=== PATIENT | female | born 1940 | race Caucasian/White ===

== ENCOUNTER → 2018-09-17 | Outpatient (CLI) | payer MEDICARE, MEDICAID ==
[~2018-09-17] MED LIST: ENAL5TAB PO; MTP25TSR PO; ROSU10TA12 PO
--- NOTE | 2018-09-17 14:42 | Diagnostic Imaging Report ---
PROCEDURE: CT abdomen and pelvis without contrast. TECHNIQUE: Multiple contiguous axial images were obtained through the abdomen and pelvis without the use of intravenous contrast. INDICATION: Abdominal aortic aneurysm. FINDINGS: The previous CT abdomen/pelvis exam of 04/04/2015 noted a 5.0 x 5.1 cm infrarenal aneurysm of the abdominal aorta. On this study, the aneurysm is again identified and now measures 5.4 x 5.4 cm. The sagittal images indicate that the aneurysm measures approximately 11.6 cm in length. There is no periaortic fluid collection to suggest an acute abnormality of the aorta. A 9 mm calcification has developed within the lumen of the aneurysm in the interval since the prior exam. This is of uncertain etiology but unlikely to be clinically significant. A good portion of the aneurysm appears to be thrombosed. Also as seen on the prior exam, there are numerous diverticula involving the sigmoid and descending colon. There is no evidence for acute diverticulitis. The appendix is not well visualized, but there are no indirect signs of acute appendicitis. The urinary bladder is grossly unremarkable. The uterus is surgically absent. The liver, spleen, pancreas, adrenals, gallbladder, kidneys, and inferior vena cava show no sign of an acute abnormality. The cysts associated with the right kidney and the nonobstructive calculi in the left kidney seen on the prior study are again evident and no different. The nonobstructive calculus in the inferior pole of the right kidney seen on the prior exam is no longer evident, however. The stomach is partially filled with fluid and consequently difficult to assess. The lung bases are clear. The bone windows are unremarkable for a fracture or for a destructive lesion. IMPRESSION: 1. The infrarenal aneurysm of the abdominal aorta seen on the prior exam has increased in size slightly. The aneurysm now measures 5.4 x 5.4 cm. 2. There is no acute abnormality of the abdomen or pelvis. 3. The nonobstructive calculus in the inferior pole of the right kidney seen on the prior exam is no longer evident. Dictated by: Dictated on workstation # [id number]
== END ==
LOC: RAD 11:57
PROVIDERS: ATTEND Radiology Vascular & Interventional Radiology
DX: I71.4 Abdominal aortic aneurysm, without rupture (principal); N20.0 Calculus of kidney
CPT/HCPCS: 74176

== ENCOUNTER → 2019-02-19 | Outpatient (CLI) | payer MEDICARE, MEDICAID ==
--- NOTE | 2019-02-19 11:47 | Diagnostic Imaging Report ---
PROCEDURE: CT abdomen and pelvis without contrast. TECHNIQUE: Multiple contiguous axial images were obtained through the abdomen and pelvis without the use of intravenous contrast. Auto Exposure Controls were utilized during the CT exam to meet ALARA standards for radiation dose reduction. INDICATION: Abdominal aortic aneurysm. COMPARISON: 09/17/2018 as well as 04/04/2015. FINDINGS: Heavy peripheral calcifications are associated with a fusiform infrarenal abdominal aortic aneurysm which commences at or just below the takeoff of the renal arteries and extends to the level of the aortic bifurcation. The aneurysm measures 5.4 cm in maximal transverse dimension, unchanged when measured at the same level from the recent exam and increased from 5.1 cm on the study from 2014. The iliac vessels are nonaneurysmal. There is no evidence for intra or extraperitoneal hemorrhage. There is no bowel obstruction. The liver, spleen, adrenals, and pancreas are unremarkable on this unenhanced exam. There are a few stones within the lumen of the partly contracted gallbladder but no bile duct dilatation. Nonobstructing left renal calcifications are stable. There is a right renal cyst at the upper pole, also stable. IMPRESSION: 1. Unruptured fusiform infrarenal peripherally calcified abdominal aortic aneurysm, stable from the most recent exam and mildly increased since 2014 in caliber. 2. No acute appearing abnormality. Cholelithiasis and right renal cysts are noted incidentally. Dictated by: Dictated on workstation # [id number]
== END ==
LOC: RAD 09:37
PROVIDERS: ATTEND Radiology Vascular & Interventional Radiology
DX: I71.4 Abdominal aortic aneurysm, without rupture (principal); I70.0 Atherosclerosis of aorta; K80.20 Calculus of gallbladder without cholecystitis without obstruction; N28.1 Cyst of kidney, acquired
CPT/HCPCS: 74176

== ENCOUNTER → 2020-02-14 | Outpatient (CLI) | payer MEDICARE, MEDICAID ==
--- NOTE | 2020-02-14 11:18 | Diagnostic Imaging Report ---
PROCEDURE: CT abdomen and pelvis without contrast. TECHNIQUE: Multiple contiguous axial images were obtained through the abdomen and pelvis without the use of intravenous contrast. Auto Exposure Controls were utilized during the CT exam to meet ALARA standards for radiation dose reduction. INDICATION: Abdominal aortic aneurysm without rupture COMPARISON: 02/19/2019, 09/17/2018, and 04/04/2015 FINDINGS: The visualized lung bases are clear. The unenhanced liver, spleen, adrenal glands, and pancreas are unremarkable. Minimal layering sludge and/or stones noted within the gallbladder without evidence of adjacent fat stranding. Hypodensities are identified associated with the right kidney, appearing similar to the prior examination. These demonstrate Hounsfield units below 10. The left kidney is unremarkable. Fusiform aneurysmal dilatation of the abdominal aorta is again identified. Aneurysm originates at the level of the renal vasculature and extends to the level of the aortic bifurcation. Maximal dimension is 5.7 x 5.7 cm, slightly increased since the prior examination. No aneurysmal dilatation of the iliac vasculature. No significant fat stranding about the abdominal aorta. The urinary bladder is unremarkable. The uterus is not visualized, likely surgically absent. No abnormal adnexal mass lesion. No bowel obstruction or pneumatosis. No significant adenopathy, free air, or free fluid within the abdomen or pelvis. Scattered osseous degenerative changes without acute osseous abnormality. IMPRESSION: Abdominal aortic aneurysm as described above measuring up to 5.7 x 5.7 cm. This has slightly increased in size since the prior exams. No evidence of rupture. Additional findings as above. Dictated by: Dictated on workstation # [id number]
== END ==
LOC: RAD 10:34
PROVIDERS: ATTEND Radiology Vascular & Interventional Radiology
DX: I71.4 Abdominal aortic aneurysm, without rupture (principal)
CPT/HCPCS: 74176

== ENCOUNTER → 2020-09-08 | Outpatient (CLI) | payer MEDICARE, MEDICAID ==
--- NOTE | 2020-09-08 10:45 | Diagnostic Imaging Report ---
EXAMINATION: CT Abdomen Pelvis without contrast. TECHNIQUE: Multiple contiguous axial images were obtained through the abdomen and pelvis without the use of intravenous contrast. All CT scans use one or more of the following dose optimizing techniques: automated exposure control, MA and/or KvP adjustment based on a patient size and exam type, or iterative reconstruction. HISTORY: Abdominal aortic aneurysm. COMPARISON: 02/14/2020 FINDINGS: Limited views of the lower thorax show pulmonary emphysema. The liver is normal without focal lesion. There is no biliary ductal dilation. Small stones are present in the gallbladder. Pancreas is normal. Spleen is normal. Adrenal glands are normal. Cysts are present in the right kidney. No suspicious renal lesions. There is no hydronephrosis. Urinary bladder is normal. Visualized bowel is normal in caliber without obstruction or inflammation. No free fluid or air. No abdominal or pelvic lymphadenopathy. There is an abdominal aortic aneurysm. It is increased in size measuring 5.9 x 6.1 cm, previously 5.6 x 5.6 cm. There is a large amount of mural thrombus and peripheral calcifications. There are no suspicious osseus lesions. IMPRESSION: 1. Increase in size of abdominal aortic aneurysm now measuring 5.9 x 6.1 cm, previously 5.6 x 5.6 cm. Dictated by: Dictated on workstation # [id number]
== END ==
LOC: RAD 09:49
PROVIDERS: ATTEND Radiology Vascular & Interventional Radiology
DX: I71.4 Abdominal aortic aneurysm, without rupture (principal)
CPT/HCPCS: 74176

== ENCOUNTER 2022-03-26 21:47 | Emergency (ER) | payer MEDICARE, MEDICAID ==
[~2022-03-26] VITALS: Ht 152.4 cm; Wt 48.0 kg
[2022-03-26] MEDS ORDERED: NS IV 500 ML 500 ML IV ONE (22:00)
[2022-03-26] MEDS ORDERED: CEFEPIME INJECTION 1,000 MG in NS (IVPB) 50 ML IV ONE (22:00)
[2022-03-26] MEDS ORDERED: VANCOMYCIN INJECTION 1,000 MG in NS (IVPB) 250 ML IV ONE (22:00)
[2022-03-26] MEDS ORDERED: RT-ALBUTEROL/IPRATROPIUM 3 ML (DUONEB) VIAL ONE (22:05)
--- NOTE | 2022-03-26 22:06 | ED Respiratory ---
General Chief Complaint: Respiratory Problems Stated Complaint: SOB Source: patient Exam Limitations: no limitations History of Present Illness Date Seen by Provider: March 26, 2022 Time Seen by Provider: 21:45 Initial Comments Patient ER by EMS from home with chief complaint of a day of increased work of breathing, wheezing and dependence on her oxygen. She says she only wears it when she feels she needs it but she is been using it at about 2-1/2 L with a 50 foot O2 extension cord today. She only takes her albuterol by nebulizer 3-4 times a week. EMS was summonsed because family saw her oxygen sats in the 50s. EMS state her hands are very dusky colored and she states she has a history of peripheral arterial disease and bilateral arms. They found her oxygen saturation to be in the mid 80s and gave her a DuoNeb which she says signific antly improved her symptoms. She has been coughing up her normal complement of white sputum. She has not had any fever or chills. No nausea vomiting chest pain. She says she is feeling much better than before. She has not been on steroids recently. Allergies and Home Medications Allergies Coded Allergies: betamethasone (Unverified Allergy, Mild, 04/04/15) diphenhydramine (Unverified Allergy, Mild, 04/04/15) ketorolac (Unverified Allergy, Mild, 04/04/15) promethazine (Unverified Allergy, Mild, 04/04/15) propylene glycol (Unverified Allergy, Mild, 04/04/15) silver sulfadiazine (Unverified Allergy, Mild, 04/04/15) Penicillins (Verified Allergy, Unknown, 04/04/15) Uncoded Allergies: IV CONTRAST (Allergy, Unknown, 04/04/15) Patient Home Medication List Home Medication List Reviewed: Yes Enalapril Maleate (Enalapril Maleate) 5 Mg Tablet, 5 MG PO DAILY, (Reported) Entered as Reported by: RA OLIVEIRA on 04/04/15 1558 Metoprolol Succinate (Toprol Xl) 25 Mg Tab, 25 MG PO DAILY, (Reported) Entered as Reported by: RA OLIVEIRA on 04/04/15 1558 Prednisone (Prednisone) 20 Mg Tab, 40 MG PO DAILY Prescribed by: NANCI YANG on 03/27/22 0148 Rosuvastatin Calcium (Crestor) 10 Mg Tablet, 1 EACH PO HS, (Reported) Entered as Reported by: RA OLIVEIRA on 04/04/15 5738 Review of Systems Review of Systems Constitutional: No chills, No diaphoresis EENTM: No ear discharge, No ear pain Respiratory: see HPI, cough; No phlegm; short of breath, wheezing Cardiovascular: No chest pain, No palpitations Gastrointestinal: No abdominal pain, No nausea, No vomiting Genitourinary: No discharge, No dysuria Musculoskeletal: back pain; No joint pain All Other Systems Reviewed Negative Unless Noted: Yes Past Ozrtvas-Xczrya-Kjpyez Hx Patient Social History Tobacco Use?: No Use of E-Cig and/or Vaping dev: No Seasonal Allergies Seasonal Allergies: No Past Medical History Hysterectomy Chronic Bronchitis Aneurysm, Hypertension Renal Failure Family Medical History No Pertinent Family Hx Physical Exam Vital Signs - First Documented Capillary Refill : Height: 5'" Weight: 124lbs. oz. 56.724017oa; BMI Method: General Appearance: moderate distress, thin, other (Chronic illness, thin) Eyes: Bilateral Eye Normal Inspection, Bilateral Eye PERRL, Bilateral Eye EOMI HEENT: PERRL/EOMI, normal ENT inspection; No pharynx normal (Mildly dry oral mucosa) Neck: full range of motion, supple, normal inspection Respiratory: respiratory distress (Oxygen saturations 96 to 97% on 3 L), decreased breath sounds, accessory muscle use; No rales; wheezing Cardiovascular: normal peripheral pulses, regular rate, rhythm Gastrointestinal: normal bowel sounds, non tender, soft Extremities: normal range of motion, non-tender, normal capillary refill Neurologic/Psychiatric: alert, normal mood/affect, oriented x 3 Skin: normal color, warm/dry Focused Exam Lactate Level 03/26/22 22:00: Lactic Acid Level 1.47 Lactic Acid Level Laboratory Tests Test 03/26/22 22:00 Lactic Acid Level 1.47 MMOL/L (0.50-2.00) Progress/Results/Core Measures Suspected Sepsis SIRS Temperature: Pulse: Respiratory Rate: Laboratory Tests 03/26/22 22:00: White Blood Count 14.5H Blood Pressure / Mean: 03/26/22 22:00: Lactic Acid Level 1.47 Laboratory Tests 03/26/22 22:00: Creatinine 2.04H, INR Comment 1.1, Platelet Count 186, Total Bilirubin 1.0 Results/Orders Lab Results Laboratory Tests Test 03/26/22 22:00 03/26/22 23:43 Range/Units White Blood Count 14.5 H 4.3-11.0 10^3/uL Red Blood Count 5.25 H 3.80-5.11 10^6/uL Hemoglobin 14.6 11.5-16.0 g/dL Hematocrit 46 35-52 % Mean Corpuscular Volume 88 80-99 fL Mean Corpuscular Hemoglobin 28 25-34 pg Mean Corpuscular Hemoglobin Concent 32 32-36 g/dL Red Cell Distribution Width 13.3 10.0-14.5 % Platelet Count 186 130-400 10^3/uL Mean Platelet Volume 9.9 9.0-12.2 fL Immature Granulocyte % (Auto) 1 % Neutrophils (%) (Auto) 81 H 42-75 % Lymphocytes (%) (Auto) 8 L 12-44 % Monocytes (%) (Auto) 9 0-12 % Eosinophils (%) (Auto) 1 0-10 % Basophils (%) (Auto) 0 0-10 % Neutrophils # (Auto) 11.8 H 1.8-7.8 10^3/uL Lymphocytes # (Auto) 1.2 1.0-4.0 10^3/uL Monocytes # (Auto) 1.3 H 0.0-1.0 10^3/uL Eosinophils # (Auto) 0.1 0.0-0.3 10^3/uL Basophils # (Auto) 0.1 0.0-0.1 10^3/uL Immature Granulocyte # (Auto) 0.1 0.0-0.1 10^3/uL Neutrophils % (Manual) 86 % Lymphocytes % (Manual) 5 % Monocytes % (Manual) 6 % Eosinophils % (Manual) 2 % Band Neutrophils 1 % Blood Morphology Comment NORMAL Prothrombin Time 14.2 12.2-14.7 SEC INR Comment 1.1 0.8-1.4 Activated Partial Thromboplast Time 28 24-35 SEC Blood Gas Puncture Site NOT INDICATED Blood Gas Patient Temperature 37.7 Arterial Blood pH 7.36 L 7.37-7.43 Arterial Blood Partial Pressure CO2 45 35-45 MMHG Arterial Blood Partial Pressure O2 81 79-93 MMHG Arterial Blood HCO3 24 23-27 MMOL/L Arterial Blood Total CO2 25.7 21.0-31.0 MMOL/L Arterial Blood Oxygen Saturation 95 94-100 % Arterial Blood Base Excess -0.3 -2.5-2.5 MMOL/L Jr Test NA Blood Gas Ventilator Setting NO Blood Gas Inspired Oxygen 3L Sodium Level 139 135-145 MMOL/L Potassium Level 4.4 3.6-5.0 MMOL/L Chloride Level 100 98-107 MMOL/L Carbon Dioxide Level 22 21-32 MMOL/L Anion Gap 17 H 5-14 MMOL/L Blood Urea Nitrogen 29 H 7-18 MG/DL Creatinine 2.04 H 0.60-1.30 MG/DL Estimat Glomerular Filtration Rate 24 BUN/Creatinine Ratio 14 Glucose Level 166 H 70-105 MG/DL Lactic Acid Level 1.47 0.50-2.00 MMOL/L Calcium Level 9.4 8.5-10.1 MG/DL Corrected Calcium 9.7 8.5-10.1 MG/DL Total Bilirubin 1.0 0.1-1.0 MG/DL Aspartate Amino Transf (AST/SGOT) 13 5-34 U/L Alanine Aminotransferase (ALT/SGPT) 14 0-55 U/L Alkaline Phosphatase 70 40-136 U/L B-Type Natriuretic Peptide 35.0 <100.0 PG/ML Total Protein 7.6 6.4-8.2 GM/DL Albumin 3.6 3.2-4.5 GM/DL Influenza Type A (RT-PCR) Not Detected Not Detecte Influenza Type B (RT-PCR) Not Detected Not Detecte SARS-CoV-2 RNA (RT-PCR) Not Detected Not Detecte Urine Color YELLOW Urine Clarity CLEAR Urine pH 5.5 5-9 Urine Specific [place] >=1.030 1.016-1.022 Urine Protein 2+ H NEGATIVE Urine Glucose (UA) NEGATIVE NEGATIVE Urine Ketones NEGATIVE NEGATIVE Urine Nitrite NEGATIVE NEGATIVE Urine Bilirubin NEGATIVE NEGATIVE Urine Urobilinogen 0.2 < = 1.0 MG/DL Urine Leukocyte Esterase NEGATIVE NEGATIVE Urine RBC (Auto) 1+ H NEGATIVE Urine RBC 0-2 /HPF Urine WBC NONE /HPF Urine Squamous Epithelial Cells 0-2 /HPF Urine Crystals NONE /LPF Urine Bacteria MODERATE H /HPF Urine Casts NONE /LPF Urine Mucus SMALL H /LPF Urine Culture Indicated CULTURE PENDING My Orders Orders - NANCI YANG Arterial Blood Gas (03/26/22 21:55) Ed Iv/Invasive Line Start (03/26/22 21:55) Ns Iv 500 Ml (Sodium Chloride 0.9%) (03/26/22 22:00) Cbc With Automated Diff (03/26/22 21:55) Comprehensive Metabolic Panel (03/26/22 21:55) Blood Culture (03/26/22 21:55) Sputum Culture (03/26/22 21:55) Urinalysis (03/26/22:55) Urine Culture (03/26/22:55) Protime With Inr (03/26/22 21:55) Partial Thromboplastin Time (03/26/22 21:55) Chest 1 View, Ap/Pa Only (03/26/22 21:55) Ed Iv/Invasive Line Start (03/26/22 21:55) Ed Iv/Invasive Line Start (03/26/22 21:55) Vital Signs Adult Sepsis Patie Q15M (03/26/22 21:55) O2 (03/26/22 21:55) Remove Rings In Anticipation O (03/26/22:55) Lactic Acid Analyzer (03/26/22 21:55) Influenza A And B By Pcr (03/26/22 21:55) Cefepime Injection (Maxipime Injection) (03/26/22 22:00) Vancomycin Injection (Vancomycin Injecti (03/26/22 22:00) Covid 19 Inhouse Test (03/26/22 21:55) Bnp Sigrid (03/26/22 22:06) Albuterol/Ipra Inhalation Soln (Duoneb I (03/26/22 22:05) Albuterol/Ipra Inhalation Soln (Duoneb I (03/26/22 22:15) Manual Differential (03/26/22 22:00) Albuterol/Ipra Inhalation Soln (Duoneb I (03/26/22 22:15) Methylprednisolone Sod Succ (Solu-Medrol (03/26/22 22:13) Svn Small Volume Nebulizer (03/26/22 22:13) Medications Given in ED Current Medications Medications Dose Ordered Sig/Julio Route Start Time Stop Time Status Last Admin Dose Admin Cefepime HCl 1000 mg/Sodium Chloride 50 ml @ 100 mls/hr ONCE ONCE IV 03/26/22 22:00 03/26/22 22:29 DC 03/26/22 23:05 100 MLS/HR Sodium Chloride 500 ml @ 0 mls/hr Q0M ONCE IV 03/26/22 22:00 03/26/22 22:01 DC 03/26/22 23:00 999 MLS/HR Vancomycin HCl 1000 mg/Sodium Chloride 250 ml @ 250 mls/hr ONCE ONCE IV 03/26/22 22:00 03/26/22 22:59 DC 03/26/22 23:40 250 MLS/HR Vital Signs/I&O 03/26/22 03/26/22 03/26/22 03/27/22 21:47 21:47 22:12 02:01 Temp 37.7 Pulse 107 84 Resp 26 B/P (MAP) 184/96 (125) 112/67 Pulse Ox 96 96 99 98 O2 Delivery Nasal Cannula Nasal Cannula Nasal Cannula Room Air O2 Flow Rate 3.00 3.00 3.00 03/27/22 00:00 Intake Total 550 ml Balance 550 ml Capillary Refill : Progress Note #1: Time: 22:05 Progress Note We will give her another DuoNeb, ABG, chest x-ray septic work-up for tachycardia and tachypnea. Cefepime, vancomycin and 500 cc of fluid to start. Progress Note #2: Time: 01:45 Progress Note Patient is sleeping and easily aroused. She is not having any increased work of breathing. She is maintaining oxygen saturations 100% on 3 L. We did offer her the opportunity to go home with some prednisone and she is okay with this plan. We will have her follow-up with Haritha Gomez in the next 1 to 2 weeks for recheck of her lungs. Diagnostic Imaging Diagonstic Imaging: Xray Plain Films/CT/US/NM/MRI: chest Comments [facility], [facility]. [place], [place] NAME: NATALYA QUINTERO Arabella [facility] REC#: [id number] PT STATUS: DEP ER : 1940 PHYSICIAN: NANCI YANG MD ADMIT DATE: 03/26/22/ER Draft Date of Exam:03/26/22 CHEST 1 VIEW, AP/PA ONLY CLINICAL INDICATION: Patient with shortness of air. EXAM: Portable chest x-ray upright view. COMPARISON: Chest x-ray dated 04/04/2015. FINDINGS: Lungs/pleura: There is interval increased amorphous patchy airspace opacities involving both midlung romero and both lower lung romero, with both midlung romero progressed the most. Lucent areas involving both upper lung romero seen which may be related to emphysema. There is no pneumothorax. There is no pleural effusion. Mediastinum: Unremarkable. Pulmonary vasculature: Unremarkable. Heart: Unremarkable. Bones/extrathoracic soft tissue: Unremarkable. IMPRESSION: 1: There is interval progression of small amount of amorphous patchy airspace opacities involving both midlung romero and both lung bases, with both midlung romero progressed the most. These findings may represent development of lung infiltrates/infectious process or progression of chronic lung changes. 2: Suspected emphysematous lung disease. Dictated on workstation # [id number] Dict: 03/27/2216 Trans: 03/27/22 0639 [facility] [id number] Interpreted by: YARI REYES MD Electronically signed by: Reviewed: Reviewed by Me Departure Impression Primary Impression: COPD exacerbation Disposition: 01 HOME, SELF-CARE Condition: Stable Departure-Patient Inst. Decision time for Depature: 01:46 Referrals: SELFMARTHA MD (PCP/Family) Primary Care Physician Patient Instructions: Exacerbation of COPD Add. Discharge Instructions: Continue to take your medications as prescribed. Use your albuterol inhaler 4 times a day while awake with an additional dose in between as necessary for coughing fits, shortness of air or wheezing. Prednisone 2 tablets daily for the next 5 days for COPD exacerbation. Follow-up in 1 to 2 weeks with your primary care office. Promptly return to the nearest ER if you are having significantly worsening symptoms despite breathing treatments. If your oxygen saturations consistently fall below 90% while at rest or other worrisome symptoms occur such as chest pain, fever etc. All discharge instructions reviewed with patient and/or family. Voiced understanding. Scripts Prednisone (Prednisone) 20 Mg Tab 40 MG PO DAILY for 5 Days, #10 TAB 0 Refills Prov: NANCI YANG 03/27/22 Copy Copies To 1: STEPHAN GRECO MD, TITUS J March 26, 2022 22:06
[2022-03-26 22:07] LABS: ABG BASE EXCESS -0.3 MMOL/L (-2.5-2.5); ABG OXYGEN SATURATION 95 % (94-100); ABG PCO2 45 MMHG (35-45); ABG PH 7.36 (7.37-7.43); ABG PO2 81 MMHG (79-93); ABG TCO2 25.7 MMOL/L (21.0-31.0)
[2022-03-26 22:09] LABS: INSPIRED O2 3L; PATIENT TEMP 37.7; VENTILATOR NO
[2022-03-26 22:11] LABS: BASOPHILS # (AUTO) 0.1 10^3/uL (0.0-0.1); BASOPHILS % (AUTO) 0 % (0-10); EOSINOPHILS # (AUTO) 0.1 10^3/uL (0.0-0.3); EOSINOPHILS % (AUTO) 1 % (0-10); HEMATOCRIT 46 % (35-52); HEMOGLOBIN 14.6 g/dL (11.5-16.0); LYMPHOCYTES # (AUTO) 1.2 10^3/uL (1.0-4.0); LYMPHOCYTES % (AUTO) 8 % (12-44); MEAN CORPUSCULAR HEMOGLOBIN 28 pg (25-34); MEAN CORPUSCULAR HGB CONC 32 g/dL (32-36); MEAN CORPUSCULAR VOLUME 88 fL (80-99); MEAN PLATELET VOLUME 9.9 fL (9.0-12.2); MONOCYTES # (AUTO) 1.3 10^3/uL (0.0-1.0); MONOCYTES % (AUTO) 9 % (0-12); NEUTROPHILS # (AUTO) 11.8 10^3/uL (1.8-7.8); NEUTROPHILS % (AUTO) 81 % (42-75); PLATELET COUNT 186 10^3/uL (130-400); WHITE BLOOD COUNT 14.5 10^3/uL (4.3-11.0)
[2022-03-26] MEDS ORDERED: methylPREDNISolone 125 MG (Solu-MEDROL) VIAL IV STA (22:13)
[2022-03-26] MEDS ORDERED: RT-ALBUTEROL/IPRATROPIUM 3 ML (DUONEB) VIAL INH ONE ×2 (22:15)
[2022-03-26 22:26] LABS: ALBUMIN 3.6 GM/DL (3.2-4.5); INR 1.1 (0.8-1.4); POTASSIUM 4.4 MMOL/L (3.6-5.0); PROTHROMBIN TIME PATIENT 14.2 SEC (12.2-14.7)
[2022-03-26 22:28] LABS: CALCIUM 9.4 MG/DL (8.5-10.1)
[2022-03-26 22:29] LABS: TOTAL PROTEIN 7.6 GM/DL (6.4-8.2)
[2022-03-26 22:32] LABS: CREATININE SERUM 2.04 MG/DL (0.60-1.30)
[2022-03-26 22:47] LABS: BAND NEUTROPHILS 1 %; EOSINOPHILS % (MANUAL) 2 %; LYMPHOCYTES % (MANUAL) 5 %; MONOCYTES % (MANUAL) 6 %; NEUTROPHILS % (MANUAL) 86 %; RBC MORPH NORMAL
[2022-03-26 23:53] LABS: BILIRUBIN,URINE NEGATIVE (NEGATIVE); CLARITY,URINE CLEAR; COLOR,URINE YELLOW; GLUCOSE, URINE (UA) NEGATIVE (NEGATIVE); KETONES,URINE NEGATIVE (NEGATIVE); LEUKOCYTE ESTERASE ,URINE NEGATIVE (NEGATIVE); NITRITE,URINE NEGATIVE (NEGATIVE); PH,URINE 5.5 (5-9); PROTEIN,URINE 2+ (NEGATIVE)
[2022-03-27 00:15] LABS: RBC,URINE 0-2 /HPF
[2022-03-27 00:16] LABS: BACTERIA,URINE MODERATE /HPF; SQUAMOUS EPITHELIAL CELL,UR 0-2 /HPF
[2022-03-27] MEDS ORDERED: PRD20T PO (01:48)
[2022-03-27 02:01] VITALS: BP 112/67
--- NOTE | 2022-03-27 06:39 | Diagnostic Imaging Report ---
CLINICAL INDICATION: Patient with shortness of air. EXAM: Portable chest x-ray upright view. COMPARISON: Chest x-ray dated 04/04/2015. FINDINGS: Lungs/pleura: There is interval increased amorphous patchy airspace opacities involving both midlung romero and both lower lung romero, with both midlung romero progressed the most. Lucent areas involving both upper lung romero seen which may be related to emphysema. There is no pneumothorax. There is no pleural effusion. Mediastinum: Unremarkable. Pulmonary vasculature: Unremarkable. Heart: Unremarkable. Bones/extrathoracic soft tissue: Unremarkable. IMPRESSION: 1: There is interval progression of small amount of amorphous patchy airspace opacities involving both midlung romero and both lung bases, with both midlung romero progressed the most. These findings may represent development of lung infiltrates/infectious process or progression of chronic lung changes. 2: Suspected emphysematous lung disease. Dictated by: Dictated on workstation # [id number]
== END 2022-03-27 02:01 | disposition home or self-care (01) ==
LOC: EDUNIT# 21:47 → ER 21:48
DX: J44.1 Chronic obstructive pulmonary disease with (acute) exacerbation (principal); Z20.822 Contact with and (suspected) exposure to COVID-19; Z99.81 Dependence on supplemental oxygen
CPT/HCPCS: 36415; 71045; 80053; 81000; 82805; 83605; 83880; 85007; 85027; 85610; 85730; 87040; 87088; 87635; 87636; 94640

== ENCOUNTER 2022-10-03 09:47 | Emergency (ER) | payer MEDICARE, MEDICAID ==
[~2022-10-03] VITALS: Ht 152 cm; Wt 47.0 kg
[~2022-10-03 09:47] MED LIST changes: +PRD20T PO
[2022-10-03] MEDS ORDERED: RT-ALBUTEROL/IPRATROPIUM 3 ML (DUONEB) VIAL IH ONE (10:00)
[2022-10-03] MEDS ORDERED: cefTRIAXone 1 GM PRE-MIX 50 ML IV ONE (10:00)
[2022-10-03] MEDS ORDERED: DOXYCYCLINE 100 MG (VIBRAMYCIN) TABLET PO ONE (10:00)
[2022-10-03 10:25] LABS: BASOPHILS % (AUTO) 0 % (0-10); EOSINOPHILS % (AUTO) 0 % (0-10); HEMATOCRIT 47 % (35-52); LYMPHOCYTES # (AUTO) 1.7 10^3/uL (1.0-4.0); LYMPHOCYTES % (AUTO) 15 % (12-44); MEAN CORPUSCULAR HEMOGLOBIN 28 pg (25-34); MEAN CORPUSCULAR HGB CONC 32 g/dL (32-36); MEAN CORPUSCULAR VOLUME 87 fL (80-99); MEAN PLATELET VOLUME 9.8 fL (9.0-12.2); MONOCYTES # (AUTO) 1.4 10^3/uL (0.0-1.0); MONOCYTES % (AUTO) 12 % (0-12); NEUTROPHILS # (AUTO) 8.5 10^3/uL (1.8-7.8); NEUTROPHILS % (AUTO) 73 % (42-75); PLATELET COUNT 157 10^3/uL (130-400); WHITE BLOOD COUNT 11.6 10^3/uL (4.3-11.0)
--- NOTE | 2022-10-03 10:27 | ED Respiratory ---
General Chief Complaint: Respiratory Problems Stated Complaint: LOW O2 Nursing Triage Note: ARRIVED VIA EMS FROM HOME WITH COMPLAINTS OF INCREASED SOA AND LOW GRADE FEVER FOR LAST COUPLE OF DAYS. PT STATES SHE IS NORMALLY ON 4L OF OXYGEN. Source: patient, family, EMS Exam Limitations: no limitations History of Present Illness Date Seen by Provider: Oct 03, 2022 Time Seen by Provider: 09:51 Initial Comments 82-year-old female with past medical history of COPD on chronic 4 L O2 with continued tobacco use coming in via EMS due to concerns for increasing shortness of breath and low-grade fever over the past couple days. Has been continued on her baseline 4 L oxygen. Denies any chest pain, abdominal pain, nausea, vomiting, diarrhea, weakness, numbness, or any other concerns. Has not been on any antibiotics recently. Allergies and Home Medications Allergies Coded Allergies: betamethasone (Unverified Allergy, Mild, 04/04/15) diphenhydramine (Unverified Allergy, Mild, 04/04/15) ketorolac (Unverified Allergy, Mild, 04/04/15) promethazine (Unverified Allergy, Mild, 04/04/15) propylene glycol (Unverified Allergy, Mild, 04/04/15) silver sulfadiazine (Unverified Allergy, Mild, 04/04/15) Penicillins (Verified Allergy, Unknown, 04/04/15) Uncoded Allergies: IV CONTRAST (Allergy, Unknown, 04/04/15) Patient Home Medication List Home Medication List Reviewed: Yes Doxycycline Hyclate (Doxycycline Hyclate) 100 Mg Tablet, 100 MG PO BID Prescribed by: JAREN LEIGH on 10/03/22 1111 Enalapril Maleate (Enalapril Maleate) 5 Mg Tablet, 5 MG PO DAILY, (Reported) Entered as Reported by: RA OLIVEIRA on 04/04/15 1558 Metoprolol Succinate (Toprol Xl) 25 Mg Tab, 25 MG PO DAILY, (Reported) Entered as Reported by: RA OLIVEIRA on 04/04/15 1558 Oseltamivir Phosphate (Tamiflu) 30 Mg Capsule, 30 MG PO DAILY Prescribed by: JAREN LEIGH on 10/03/22 1111 Prednisone (Prednisone) 20 Mg Tab, 40 MG PO DAILY Prescribed by: NANCI YANG on 03/27/22 0148 Rosuvastatin Calcium (Crestor) 10 Mg Tablet, 1 EACH PO HS, (Reported) Entered as Reported by: RA OLIVEIRA on 04/04/15 4728 Review of Systems Review of Systems Constitutional: fever EENTM: No blurred vision Respiratory: cough, short of breath Cardiovascular: no symptoms reported Gastrointestinal: no symptoms reported Genitourinary: no symptoms reported Musculoskeletal: no symptoms reported Skin: no symptoms reported Psychiatric/Neurological: No Symptoms Reported Hematologic/Lymphatic: No Symptoms Reported Immunological/Allergic: no symptoms reported All Other Systems Reviewed Negative Unless Noted: Yes Past Jbyslki-Wfkmwp-Jrpygu Hx Patient Social History Tobacco Use?: Yes Tobacco type used: Cigarettes Alcohol Use?: No Seasonal Allergies Seasonal Allergies: No Past Medical History Surgeries: No Hysterectomy Chronic Bronchitis Aneurysm, Hypertension Renal Failure Family Medical History No Pertinent Family Hx Physical Exam Vital Signs - First Documented 10/03/22 09:49 Temp 37.3 Pulse 100 Resp 20 B/P (MAP) 147/112 (124) Pulse Ox 97 O2 Delivery Nasal Cannula O2 Flow Rate 4.00 Capillary Refill : Less Than 3 Seconds Height: 5'" Weight: 124lbs. oz. 56.790842wg; 20.00 BMI Method: General Appearance: WD/WN, no apparent distress, other (Thin, chronically ill- appearing) HEENT: PERRL/EOMI, normal ENT inspection, pharynx normal Neck: non-tender, full range of motion, supple, normal inspection Respiratory: chest non-tender, no accessory muscle use, wheezing Cardiovascular: regular rate, rhythm, no edema, no murmur Gastrointestinal: normal bowel sounds, non tender, soft; No distended, No guarding Extremities: normal range of motion, non-tender, normal inspection, no pedal edema, no calf tenderness, normal capillary refill Neurologic/Psychiatric: no motor/sensory deficits, alert, normal mood/affect Skin: normal color, warm/dry Lymphatic: no adenopathy Progress/Results/Core Measures Suspected Sepsis SIRS Temperature: Pulse: 100 Respiratory Rate: 20 Laboratory Tests 10/03/22 10:16: White Blood Count 11.6H Blood Pressure 147 /112 Mean: 124 Laboratory Tests 10/03/22 10:16: Creatinine 2.41H, Platelet Count 157, Total Bilirubin 0.6 Results/Orders Lab Results Laboratory Tests Test 10/03/22 09:50 10/03/22 10:16 Range/Units Influenza Type A (RT-PCR) Detected H Not Detecte Influenza Type B (RT-PCR) Not Detected Not Detecte SARS-CoV-2 RNA (RT-PCR) Not Detected Not Detecte White Blood Count 11.6 H 4.3-11.0 10^3/uL Red Blood Count 5.39 H 3.80-5.11 10^6/uL Hemoglobin 15.0 11.5-16.0 g/dL Hematocrit 47 35-52 % Mean Corpuscular Volume 87 80-99 fL Mean Corpuscular Hemoglobin 28 25-34 pg Mean Corpuscular Hemoglobin Concent 32 32-36 g/dL Red Cell Distribution Width 13.9 10.0-14.5 % Platelet Count 157 130-400 10^3/uL Mean Platelet Volume 9.8 9.0-12.2 fL Immature Granulocyte % (Auto) 1 % Neutrophils (%) (Auto) 73 42-75 % Lymphocytes (%) (Auto) 15 12-44 % Monocytes (%) (Auto) 12 0-12 % Eosinophils (%) (Auto) 0 0-10 % Basophils (%) (Auto) 0 0-10 % Neutrophils # (Auto) 8.5 H 1.8-7.8 10^3/uL Lymphocytes # (Auto) 1.7 1.0-4.0 10^3/uL Monocytes # (Auto) 1.4 H 0.0-1.0 10^3/uL Eosinophils # (Auto) 0.0 0.0-0.3 10^3/uL Basophils # (Auto) 0.0 0.0-0.1 10^3/uL Immature Granulocyte # (Auto) 0.1 0.0-0.1 10^3/uL Sodium Level 138 135-145 MMOL/L Potassium Level 4.4 3.6-5.0 MMOL/L Chloride Level 102 98-107 MMOL/L Carbon Dioxide Level 22 21-32 MMOL/L Anion Gap 14 5-14 MMOL/L Blood Urea Nitrogen 32 H 7-18 MG/DL Creatinine 2.41 H 0.60-1.30 MG/DL Estimat Glomerular Filtration Rate 20 BUN/Creatinine Ratio 13 Glucose Level 117 H 70-105 MG/DL Calcium Level 9.2 8.5-10.1 MG/DL Corrected Calcium 9.3 8.5-10.1 MG/DL Magnesium Level 2.1 1.6-2.4 MG/DL Total Bilirubin 0.6 0.1-1.0 MG/DL Aspartate Amino Transf (AST/SGOT) 22 5-34 U/L Alanine Aminotransferase (ALT/SGPT) 18 0-55 U/L Alkaline Phosphatase 69 40-136 U/L Troponin I < 0.028 <0.028 NG/ML B-Type Natriuretic Peptide 23.3 <100.0 PG/ML Total Protein 7.6 6.4-8.2 GM/DL Albumin 3.9 3.2-4.5 GM/DL My Orders Orders - JAREN LEIGH MD Cbc With Automated Diff (10/03/22 09:52) Comprehensive Metabolic Panel (10/03/22:52) Influenza A And B By Pcr (10/03/22 09:52) Chest 1 View, Ap/Pa Only (10/03/22 09:52) Covid 19 Inhouse Test (10/03/22:52) Monitor-Rhythm Ecg Trace Only (10/03/22:52) Pulse Oximetry Order (10/03/22 09:52) Albuterol/Ipra Inhalation Soln (Duoneb I (10/03/22 10:00) Ceftriaxone 1 Gm Pre-Mix (Rocephin 1 Gm (10/03/22 10:00) Doxycycline Hyclate Tablet (Vibramycin T (10/03/22 10:00) Bnp Sigrid (10/03/22 09:52) Magnesium (10/03/22 09:52) Troponin I [place] (10/03/22 09:52) Ekg Tracing (10/03/22 09:52) Medications Given in ED Current Medications Medications Dose Ordered Sig/Julio Route Start Time Stop Time Status Last Admin Dose Admin Albuterol/ Ipratropium 3 ml ONCE ONCE IH 10/03/22 10:00 10/03/22 10:01 DC 10/03/22 10:31 3 ML Ceftriaxone Sodium/Dextrose 50 ml @ 100 mls/hr ONCE ONCE IV 10/03/22 10:00 10/03/22 10:29 DC 10/03/22 10:31 100 MLS/HR Doxycycline Hyclate 100 mg ONCE ONCE PO 10/03/22 10:00 10/03/22 10:01 DC 10/03/22 10:30 100 MG Vital Signs/I&O 10/03/22 10/03/22 09:49 11:27 Temp 37.3 Pulse 100 98 Resp 20 20 B/P (MAP) 147/112 (124) 136/63 Pulse Ox 97 96 O2 Delivery Nasal Cannula Nasal Cannula O2 Flow Rate 4.00 4.00 4.00 Capillary Refill : Less Than 3 Seconds Blood Pressure Mean: 124 Progress Note : Progress Note 82-year-old female with bad COPD presenting for worsening shortness of breath. Patient was doing okay on her 4 L oxygen, but is very symptomatic and dyspneic at this time. An IV was placed and basic labs were obtained including cardiac biomarkers. EKG with no STEMI. Flu a test was positive. Given her significant comorbidities, will give her Tamiflu. I discussed with the patient that she is chronically ill, and likely would require admission to the hospital. At this time she states she adamantly wants to go home. She does have oxygen at home and people that can be with her all the time. Told her if things worsen she should immediately call 911 and come back to the ER. Of note, the patient does require oxygen at all times, and quickly becomes hypoxic to the 50's without oxygen. I will put in an order for a portable concentrator so that she can make it home without becoming severely hypoxic ECG Initial ECG Impression Date: Oct 03, 2022 Initial ECG Impression Time: 10:07 Initial ECG Rate: 99 Initial ECG Rhythm: Normal Sinus Comment Narrow QRS, normal axis, subtle ST depression in the inferior leads otherwise no ST elevation or T wave abnormalities Diagnostic Imaging Diagonstic Imaging: Xray Plain Films/CT/US/NM/MRI: chest Comments NAME: NATALYA QUINTERO [facility] REC#: [id number] PT STATUS: REG ER : 1940 PHYSICIAN: JAREN LEIGH MD ADMIT DATE: 10/03/22/ER Draft Date of Exam:10/03/22 CHEST 1 VIEW, AP/PA ONLY INDICATION: Shortness of breath. COMPARISON: Comparison is made with prior examination of 03/27/2022. FINDINGS: The heart size, mediastinal configuration, and pulmonary vascularity are within normal limits. There is no pleural effusion, pneumothorax, or pneumonia. The osseous structures are unremarkable. IMPRESSION: No acute cardiopulmonary abnormality. Dictated on workstation # [id number] Dict: 10/03/22 1047 Trans: 10/03/22 1050 [id number] Interpreted by: JOSE D MAR MD Electronically signed by: Departure Impression Primary Impression: Influenza A Additional Impression: Chronic respiratory failure Qualified Codes: J96.11 - Chronic respiratory failure with hypoxia Disposition: HOME, SELF-CARE Condition: Stable Departure-Patient Inst. Referrals: CHESTER CHAPIN (PCP) Primary Care Physician [facility] (Family) Primary Care Physician Patient Instructions: Flu, Adult (DC) Add. Discharge Instructions: He did have influenza A. He will be on Tamiflu and an antibiotic as well given your COPD. If things worsen and you need to turn her oxygen up beyond the 5 L which you are unable to do, please call 911 to come back to the ER. Scripts Doxycycline Hyclate (Doxycycline Hyclate) 100 Mg Tablet 100 MG PO BID for 7 Days, #14 TAB 0 Refills Prov: JARNE LEIGH MD 10/03/22 Oseltamivir Phosphate (Tamiflu) 30 Mg Capsule 30 MG PO DAILY for 5 Days, #5 CAP Prov: JAREN LEIHG MD 10/03/22 JAREN LEIGH MD Oct 03, 2022 10:27
--- NOTE | 2022-10-03 10:50 | Diagnostic Imaging Report ---
INDICATION: Shortness of breath. COMPARISON: Comparison is made with prior examination of 03/27/2022. FINDINGS: The heart size, mediastinal configuration, and pulmonary vascularity are within normal limits. There is no pleural effusion, pneumothorax, or pneumonia. The osseous structures are unremarkable. IMPRESSION: No acute cardiopulmonary abnormality. Dictated by: Dictated on workstation # [id number]
[2022-10-03 11:05] LABS: ALANINE AMINOTRANSFERASE 18 U/L (0-55); ALBUMIN 3.9 GM/DL (3.2-4.5); ALKALINE PHOSPHATASE 69 U/L (40-136); BILIRUBIN,TOTAL 0.6 MG/DL (0.1-1.0); BUN/CREATININE RATIO 13; CALCIUM 9.2 MG/DL (8.5-10.1); CARBON DIOXIDE 22 MMOL/L (21-32); CHLORIDE 102 MMOL/L (98-107); CREATININE SERUM 2.41 MG/DL (0.60-1.30); GFR ESTIMATED 20; GLUCOSE 117 MG/DL (70-105); MAGNESIUM 2.1 MG/DL (1.6-2.4); POTASSIUM 4.4 MMOL/L (3.6-5.0); SODIUM 138 MMOL/L (135-145); TOTAL PROTEIN 7.6 GM/DL (6.4-8.2)
[2022-10-03] MEDS ORDERED: OSEL30CA PO (11:11)
[2022-10-03] MEDS ORDERED: DOXY100T2 PO (11:11)
[2022-10-03 11:27] VITALS: BP 136/63
== END 2022-10-03 12:24 | disposition home or self-care (01) ==
LOC: EDUNIT# 09:47 → ER 09:48
DX: J10.1 Influenza due to other identified influenza virus with other respiratory manifestations (principal); J96.10 Chronic respiratory failure, unspecified whether with hypoxia or hypercapnia; J44.9 Chronic obstructive pulmonary disease, unspecified; F17.210 Nicotine dependence, cigarettes, uncomplicated; Z99.81 Dependence on supplemental oxygen; Z20.822 Contact with and (suspected) exposure to COVID-19; Z28.310 Unvaccinated for COVID-19
CPT/HCPCS: 36415; 71045; 80053; 83735; 83880; 84484; 85025; 87636; 93005

== ENCOUNTER 2022-10-07 15:27 | Emergency (ER) | payer MEDICARE, MEDICAID ==
[~2022-10-07 15:27] MED LIST changes: +DOXY100T2 PO; +OSEL30CA PO
--- NOTE | 2022-10-07 16:08 | Diagnostic Imaging Report ---
CLINICAL INDICATION: Patient with shortness of breath. Flu positive. EXAM: Portable chest x-ray upright view. COMPARISON: 10/03/2022. FINDINGS: Lungs/pleura: There is bibasilar atelectasis. Lungs are otherwise clear. There is no pneumothorax. There is no pleural effusion. Mediastinum: Unremarkable. Pulmonary vasculature: Unremarkable. Heart: Unremarkable. Bones/extrathoracic soft tissue: There are degenerative spurs involving the thoracic spine. Anteriorly cervical discectomy fusion hardware is seen overlying the lower cervical spine. There appears to be a stent graft overlying the upper abdominal midline region. IMPRESSION: There is no radiographic evidence of acute cardiopulmonary process. Dictated by: Dictated on workstation # [id number]
--- NOTE | 2022-10-07 16:19 | ED Cough/URI ---
General Chief Complaint: Respiratory Problems Stated Complaint: TROUBLE BREATHING,COUGH,SOA Nursing Triage Note: PT WAS SEEN IN ED ON MONDAY, DX WITH FLU A, SENT HOME WITH HOME O2. HAS HAD INCREAED SOB TODAY ON 4L Source: patient Exam Limitations: no limitations History of Present Illness Date Seen by Provider: Oct 07, 2022 Time Seen by Provider: 15:50 Initial Comments Patient is an 82-year-old female who presents to the emergency department for evaluation of persistent shortness of breath in the context of being flu a positive. Patient was seen here on Monday and diagnosed with influenza A. Patient has portable oxygen at home that she is a still regularly used as needed. She has been using 3 to 4 L at all times since her symptoms began. Work-up was reassuring at previous ER visit other than the influenza A. Patient was given prescriptions for Tamiflu as well as doxycycline given her history of COPD. Patient is accompanied by her daughter. Daughter states patient has not been taking it as prescribed. She has also not been taking any of her home medicines over the last few days. Daughter states she has been trying to talk the patient into taking the medicine but she consistently refuses. Patient was seen at a walk-in clinic today and referred here as the provider felt like patient may have pneumonia. Patient has not had a fever over the last several days. She states she has a productive cough with some thick white sputum. Patient does currently smoke. Allergies and Home Medications Allergies Coded Allergies: betamethasone (Unverified Allergy, Mild, 04/04/15) diphenhydramine (Unverified Allergy, Mild, 04/04/15) ketorolac (Unverified Allergy, Mild, 04/04/15) promethazine (Unverified Allergy, Mild, 04/04/15) propylene glycol (Unverified Allergy, Mild, 04/04/15) silver sulfadiazine (Unverified Allergy, Mild, 04/04/15) Penicillins (Verified Allergy, Unknown, 04/04/15) Uncoded Allergies: IV CONTRAST (Allergy, Unknown, 04/04/15) Patient Home Medication List Home Medication List Reviewed: Yes Doxycycline Hyclate (Doxycycline Hyclate) 100 Mg Tablet, 100 MG PO BID Prescribed by: JAREN LEIGH on 10/03/22 1111 Enalapril Maleate (Enalapril Maleate) 5 Mg Tablet, 5 MG PO DAILY, (Reported) Entered as Reported by: RA OLIVEIRA on 04/04/15 1558 Metoprolol Succinate (Toprol Xl) 25 Mg Tab, 25 MG PO DAILY, (Reported) Entered as Reported by: RA OLIVEIRA on 04/04/15 155 Oseltamivir Phosphate (Tamiflu) 30 Mg Capsule, 30 MG PO DAILY Prescribed by: JAREN LEIGH on 10/03/22 1111 Prednisone (Prednisone) 20 Mg Tab, 40 MG PO DAILY Prescribed by: NANCI YANG on 03/27/22 0148 Rosuvastatin Calcium (Crestor) 10 Mg Tablet, 1 EACH PO HS, (Reported) Entered as Reported by: RA OLIVEIRA on 04/04/15 155 Review of Systems Review of Systems Constitutional: no symptoms reported EENTM: no symptoms reported Respiratory: see HPI, cough, short of breath Cardiovascular: no symptoms reported Gastrointestinal: no symptoms reported Genitourinary: no symptoms reported Musculoskeletal: no symptoms reported Skin: no symptoms reported Psychiatric/Neurological: No Symptoms Reported Hematologic/Lymphatic: No Symptoms Reported Immunological/Allergic: no symptoms reported Past Utliupj-Wxpovm-Hmndsg Hx Patient Social History Tobacco Use?: Yes Tobacco type used: Cigarettes Smoking Status: Current Everyday Smoker Substance use?: No Alcohol Use?: No Immunizations Up To Date Influenza Vaccine Up-to-Date: Yes; Up-to-Date Seasonal Allergies Seasonal Allergies: No Past Medical History Surgery/Hospitalization HX: COPD, CKD,HTN Surgeries: No Hysterectomy Chronic Bronchitis Aneurysm, Hypertension Renal Failure Family Medical History No Pertinent Family Hx Physical Exam Vital Signs - First Documented 10/07/22 15:38 Temp 36.1 Pulse 99 Resp 24 B/P (MAP) 209/120 (149) Pulse Ox 89 O2 Delivery Nasal Cannula O2 Flow Rate 4.00 Capillary Refill : Less Than 3 Seconds Height: 5'" Weight: 124lbs. oz. 56.115561ow; 20.00 BMI Method: General Appearance: WD/WN, no apparent distress HEENT: PERRL/EOMI, normal ENT inspection, TMs normal, pharynx normal Neck: supple, normal inspection Respiratory: chest non-tender, no respiratory distress, no accessory muscle use, wheezing, expiration Cardiovascular: regular rate, rhythm Gastrointestinal: normal bowel sounds, non tender, soft Extremities: normal inspection Neurologic/Psychiatric: no motor/sensory deficits, alert, normal mood/affect, oriented x 3 Skin: normal color, warm/dry Progress/Results/Core Measures Suspected Sepsis SIRS Temperature: Pulse: 99 Respiratory Rate: 24 Blood Pressure 209 /120 Mean: 149 Results/Orders My Orders Orders - LUIS GAGNON APRN Chest 1 View, Ap/Pa Only (10/07/22 15:44) Vital Signs/I&O 10/07/22 10/07/22 10/07/22 15:38 15:51 16:44 Temp 36.1 36.2 Pulse 99 71 Resp 24 17 B/P (MAP) 209/120 (149) 154/87 Pulse Ox 89 95 O2 Delivery Nasal Cannula Nasal Cannula Nasal Cannula O2 Flow Rate 4.00 4.00 4.00 Capillary Refill : Less Than 3 Seconds Blood Pressure Mean: 149 Progress Note : Progress Note Patient is nontoxic and well-hydrated on exam. She does have some mild exp iratory wheezing. Daughter states she had a DuoNeb approximate hour prior to arrival. No significant respiratory distress noted while patient is at rest. Vital signs are otherwise reassuring other than some hypertension that is likely related to patient not taking her normal antihypertensive medication. Chest x- ray was obtained that was acutely negative. Patient is wanting to go home. She is not hypoxic on 3 L of oxygen. Discussed supportive care and importance of taking the doxycycline as prescribed at last visit. Daughter states she filled the prescription and will attempt to get her mother to take the medicine. Discussed importance of frequent nebulizer treatments. Follow-up with PCP very closely. Very strict return precautions discussed for urgent symptomology. Patient and daughter verbalized understanding. Departure Impression Primary Impression: Influenza A Additional Impression: Chronic respiratory failure Qualified Codes: J96.11 - Chronic respiratory failure with hypoxia Disposition: HOME, SELF-CARE Condition: Stable Departure-Patient Inst. Decision time for Depature: 16:15 Referrals: CHESTER CHAPIN (PCP) Primary Care Physician [facility] (Family) Primary Care Physician Patient Instructions: Flu, Adult ED Add. Discharge Instructions: It is important you take the antibiotic as prescribed by the ER doctor at your last visit. Follow-up with your regular doctor early next week. It is also important you take your regular medications. All discharge instructions reviewed with patient and/or family. Voiced understanding. LUIS GAGNON APRN Oct 07, 2022 16:19
[2022-10-07 16:44] VITALS: BP 154/87
== END 2022-10-07 16:44 | disposition home or self-care (01) ==
LOC: EDUNIT# 15:27 → ER 15:28
DX: J10.1 Influenza due to other identified influenza virus with other respiratory manifestations (principal); J96.10 Chronic respiratory failure, unspecified whether with hypoxia or hypercapnia; J44.1 Chronic obstructive pulmonary disease with (acute) exacerbation; F17.210 Nicotine dependence, cigarettes, uncomplicated; Z99.81 Dependence on supplemental oxygen; Z28.310 Unvaccinated for COVID-19
CPT/HCPCS: 71045